=== PATIENT | male | born 1955 | race Caucasian/White ===

== ENCOUNTER → 2021-05-13 12:28 | Outpatient (BNVA) | payer OTHER, SELFPAY | PROVIDERS: Visit Provider Internal Medicine | DX: Z01.812 Encounter for preprocedural laboratory examination (principal); Z20.822 Contact with and (suspected) exposure to COVID-19 | CPT/HCPCS: 87635 ==

== ENCOUNTER 2021-05-16 06:29 | Day surgery (SDC) | payer OTHER, SELFPAY ==
[2021-05-12 10:41] VITALS: BMI 26.4
[2021-05-16 07:03] VITALS: BP 165/104; PULSE 75; RESP 16; TEMP 36.7; O2SAT 98
[2021-05-16] MEDS: sodium chloride 0.9% 1,000 ML 30 ML IV (07:20)
--- NOTE | 2021-05-16 07:22 | ANES.PREANE2 ---
Pre-Anesthetic Assessment Height/Weight: Height 1.8 m Weight 86.183 kg Temp Pulse Resp BP Pulse Ox 98.1 F 75 16 165/104 98 05/16/21 07:03 05/16/21 07:03 05/16/21 07:03 05/16/21 07:03 05/16/21 07:03 Operation Date: 05/16/21 08:15 Proposed Procedures p Colonoscopy g0105/z12.11/z86.010(Not Applicable) - Arslan English MD Familial anesthetic complications: None Was Beta Tammie taken within 24 hours: N/A Was Clonidine taken within 24 hours: N/A Last intake: Intake Last Liquid Date 05/15/21 Last Liquid Time 20:30 Last Solid Date 05/14/21 Last Solid Time 20:00 Social Tobacco and No alcohol Exam alert, oriented x 3, clear to auscultation bilaterally and regular rate & rhythm Airway Submandibular: within normal limits Cervical ROM: within normal limits Mallampati: Class II Dentition: chipped Pulmonary Chronic Obstructive Pulmonary Disease GI h/o colon polyp Anesthetic Plan ASA status: 2 Medications/Allergies Home Medications Medication Instructions Recorded Confirmed Last Taken Type ibuprofen 800 mg tablet 800 mg PO Q8H 05/04/21 05/16/21 05/13/21 History Allergies Allergy/AdvReac Type Severity Reaction Status Date / Time Penicillins Allergy Unknown Verified 05/16/21 07:01 Current Medications Generic Name Dose Route Start Last Admin Trade Name Freq PRN Reason Stop Dose Admin Sodium Chloride 1,000 mls @ 30 mls/hr 05/16/21 06:45 05/16/21 07:20 Sodium Chloride 0.9% IV 05/17/21 06:44 30 mls/hr .Q24H FENG Administration Data Anesthesia Cardiac Studies: No Data to Display
--- NOTE | 2021-05-16 07:48 | W.PM.OPSFHP ---
Same Day Surgery H&P Indication for Procedure/HPI DATE OF PROCEDURE: May 16, 2021 CHIEF COMPLAINT/INDICATIONFOR SURGICAL PROCEDURE: History of colon polyp PREOP DIAGNOSIS: History of colon history of colon polyp PLANNED PROCEDURE: Operation Date: 05/16/21 08:15 Proposed Procedures p Colonoscopy g0105/z12.11/z86.010(Not Applicable) - Arslan English MD Medications/Allergies* Home Medications Medication Instructions Recorded Confirmed Type ibuprofen 800 mg tablet 800 mg PO Q8H 05/04/21 05/16/21 History Allergies/Adverse Reactions Allergy/AdvReac Type Severity Reaction Status Date / Time Penicillins Allergy Unknown Verified 05/16/21 07:01 Current Medications: Generic Name Dose Route Start Last Admin Trade Name Freq PRN Reason Stop Dose Admin Sodium Chloride 1,000 mls @ 30 mls/hr 05/16/21 06:45 05/16/21 07:20 Sodium Chloride 0.9% IV 05/17/21 06:44 30 mls/hr .Q24H FENG Administration Pertinent Exam Findings alert, oriented x 3, clear to auscultation bilaterally, regular rate & rhythm, operative site marked and procedure specific exam findings Recommendations Surgery/Procedure today Coding Level of Care Code Acute Manager Business Continuity for Domitila Chapman
[2021-05-16 08:36] VITALS: BP 130/86; PULSE 67; RESP 16; TEMP 36.1; O2SAT 98
[2021-05-16 08:49] VITALS: BP 146/110; PULSE 97; RESP 18; O2SAT 99
--- NOTE | 2021-05-16 14:26 | ANE.PACU2 ---
Inpatient post-anesthesia follow up: Airway intact: Yes Vital signs: Temperature 97 F Pulse Rate 97 Respiratory Rate 18 Blood Pressure 146/110 Pulse Oximetry 99 Oxygen Delivery Me thod Room Air Oxygen Flow Rate 3 Fraction of Inspir ed Oxygen Hydration adequate: Yes Nausea and vomiting: No Pain level: 1 Mental status: Baseline
== END 2021-05-16 09:10 | disposition home or self-care (01) ==
PROVIDERS: Visit Provider Internal Medicine
PROC: 0DJD8ZZ Inspection of Lower Intestinal Tract, Via Natural or Artificial Opening Endoscopic (ICD-10-PCS; CPT 45378; principal; 2021-05-16 08:15)
DX: Z12.11 Encounter for screening for malignant neoplasm of colon (principal); Z86.010 Personal history of colon polyps; K57.30 Diverticulosis of large intestine without perforation or abscess without bleeding; D12.3 Benign neoplasm of transverse colon; D12.0 Benign neoplasm of cecum
CPT/HCPCS: 45385; 88305; J2704; J7030

== ENCOUNTER 2022-02-10 07:51 | Inpatient (IN) | payer OTHER, SELFPAY ==
[2022-02-10] VITALS (31 sets, daily range): BP systolic 132–211; BP diastolic 89–132; PULSE 54–87; RESP 10–21; TEMP 36.4; O2SAT 93–99; BMI 27.1; BMI 26.4
--- NOTE | 2022-02-10 08:10 | CT_ITS ---
WS: [id number] CT HEAD NONCONTRAST HISTORY: Symptoms of Acute Stroke TECHNIQUE: Contiguous axial imaging performed through the brain in 2.5 mm imaging. Bone and soft tiss ue windows. Sagittal and coronal reformats reviewed. All CT scans at [facility] use at least one of these dose optimization techniques: automated exposure control; mA and/or kV adjustment per pa tient size (includes targeted exams where dose is matched to clinical indication); or iterative recon struction. DLP: 1229.30 mGy-cm. COMPARISON: 08/02/2011 No acute intracranial hemorrhage, midline shift or mass effect. Mild atrophy with severe confluent decreased attenuation throughout the white matter from prior ische abby disease. Moderate progression since 2011. Focal area of new edema would be difficult to identify. There is no sulcal effacement. Tiny lacunar infarct RIGHT caudate. Ventricles: Normal size with no hydrocephalus. Dense LEFT MCA sign. Paranasal sinuses: Moderate mucoperiosteal thickening in the sinus cavities. Most significant involvi ng the ethmoid and LEFT maxillary. Mastoid air cells: Well pneumatized. Calvarium and scalp: Skull is intact with no soft tissue edema or swelling. CT/CT head thrombolytic 44017 IMPRESSION: 1. No acute intracranial hemorrhage. 2. Dense LEFT MCA sign. Suspect MCA thrombus. 3. Severe small vessel ischemic disease throughout the white matter. No large area of infarct. New areas of infarction may be difficult to identified based u brittany the adjacent confluent chronic white matter disease. Notified Robert Ferreira DO at 02/10/2022 8:21 AM.
--- NOTE | 2022-02-10 08:16 | W.ED.NEUROSD ---
HPI - Neuro Symptoms/Deficit General: Chief Complaint: Weakness Stated Complaint: Weakness Time Seen by Provider: 02/10/22 08:10 Source: patient and family Mode of arrival: wheelchair History of Present Illness: 66-year-old male presents emergency room with right-sided weakness. Initially the report I received was that it began this morning after he woke up however in talking to more carefully and asking family members were present his last known well was about 9-9 30 last night. Patient is not on any anticoagulants he denies any chest pain he denies history of previous strokes. Onset (ago): hour(s) Time: 07:57 Last Observed Normal: 21:30 Location: right face, right arm and right leg History of same: No Severity: severe Quality: weak and tingling Relieving factors: none Exacerbating factors: none Context: gradual onset and other (Awoke with symptoms.) Associated symptoms: Deny chest pain, cough, diaphoresis, fevers/chills, headache(s), anorexia, malaise, nausea, seizures, short of breath, syncope, tingling, vertigo, vomiting or weakness Treatments Prior to Arrival: none Review of Systems Const: Denies: fever(s), chills, fatigue, malaise or diaphoresis ENMT: Denies: throat pain, ear or mastoid pain, nasal discharge or nasal congestion Card: Denies: chest pain or syncope Resp: Denies: dyspnea, productive cough or non-productive cough GI: Denies: abdominal pain, nausea or vomiting : Denies: flank pain, difficulty urinating, dysuria, urinary frequency or urinary urgency Musc: Denies: neck pain or back pain Skin/Breast: Denies: rash or pruritus Neuro: Denies: headache(s) or vertigo NIH stroke score NIHSS: Level Of Consciousness - 1a: 0 Level Of Consciousness Questions - 1b: Both Correct Level Of Consciousness Commands - 1c: Both Correct Best Gaze - 2: Normal Visual Tello - 3: No Visual Loss Facial Palsy - 4: Partial Paralysis Motor Arm Right - 5: Effort Against [place] Motor Arm Left - 5: No Drift Motor Leg Right - 6: Effort Against [place] Motor Leg Left - 6: No Drift Limb Ataxia - 7: Present In Two Limbs Sensory - 8: Mild To Moderate Loss Best Language - 9: No Aphasia Dysarthia - 10: Mild/Moderate Dysarthia Extinction And Inattention - 11: 0 Score: Total Score: 10 Course Vital Signs: Vital signs: Vital Signs Temperature 97.5 F L 02/10/22 07:57 Pulse Rate 87 02/10/22 07:57 Respiratory Rate 14 02/10/22 07:57 Blood Pressure 173/108 02/10/22 07:57 Pulse Oximetry 96 02/10/22 07:57 Oxygen Delivery Me thod 02/10/22 07:57 MDM - Neuro Symptoms/Deficit Lab Data 02/10/22 08:15 02/10/22 08:15 Laboratory Results WBC 9.3 10^3/uL (4.0-10.0) 02/10/22 08:15 RBC 5.69 10^6/uL (4.1-5.3) H 02/10/22 08:15 Hgb 17.6 g/dL (11.7-16.6) H 02/10/22 08:15 Hct 52.5 % (42.0-52.0) H 02/10/22 08:15 MCV 92.3 fl (80-94) 02/10/22 08:15 MCH 30.9 pg (28.0-34.0) 02/10/22 08:15 MCHC 33.5 g/dL (30.0-36.0) 02/10/22 08:15 RDW 13.1 % (12.1-15.1) 02/10/22 08:15 Plt Count 223 10^3/cmm (130-400) 02/10/22 08:15 MPV 9.4 fL (7.4-10.4) 02/10/22 08:15 Neut % (Auto) 68.6 % 02/10/22 08:15 Lymph % (Auto) 24.1 % 02/10/22 08:15 [place] % (Auto) 5.3 % 02/10/22 08:15 Eos % (Auto) 1.2 % 02/10/22 08:15 Baso % (Auto) 0.5 % 02/10/22 08:15 Neut # (Auto) 6.40 10^3/uL (1.8-7.7) 02/10/22 08:15 Lymph # (Auto) 2.3 10^3/uL (0.8-4.8) 02/10/22 08:15 [place] # (Auto) 0.5 10^3/uL (0.2-0.9) 02/10/22 08:15 Eos # (Auto) 0.1 10^3/uL (0.0-0.8) 02/10/22 08:15 Baso # (Auto) 0.1 10^3/uL (0.0-0.1) 02/10/22 08:15 Nucleated RBC % (auto) 0 % 02/10/22 08:15 Nucleated RBCs # 0.0 /100WBC 02/10/22 08:15 POC Glucose 118 mg/dL (70-110) H 02/10/22 08:11 Discharge Plan Discharge Condition: Stable Prescriptions: No Action ibuprofen 800 mg tablet 800 mg PO Q8H Coding Level of Care Code ED Office Machine Inspector for Domitila Chapman
--- NOTE | 2022-02-10 08:17 | CT_ITS ---
WS: [id number] CT ANGIOGRAM CEREBRAL AND CAROTID ARTERIES HISTORY: Acute CVA NIH 10 TECHNIQUE: CT angiogram is performed of the carotid and cerebral arteries. During arterial injection imaging is obtained from the skull vertex to the aortic arch in 1.25 mm imaging. Coronal and sagittal reformats are submitted. Additional multi planar reformats of the carotid and cerebral arteries are submitted, MIP imaging also reviewed. NASCET criteria utilized. [facility] CT [facility] at least one of these dose optimization techniques: automated exposure control; mA and/or kV adjust ment per patient size (includes targeted exams where dose is matched to clinical indication); or iter ative reconstruction. CONTRAST: Omnipaque 350; 100 mL IV. DLP: 568.08 mGy.cm COMPARISON: Noncontrast CT head 02/10/2022 Carotid Angiogram: Right carotid: Common carotid artery: Arises normally from the innominate artery. No significant plaque or stenosis. Tortuous but patent. Internal carotid artery: No plaque or stenosis. External carotid artery: Patent. Left carotid: Common carotid artery: Arises normally from the aorta. No significant plaque or stenosis. Internal carotid artery: No plaque or stenosis. External carotid artery: Patent. Right vertebral artery: Small caliber but patent. Left vertebral artery: Unremarkable. Arises normally from the subclavian artery. Subclavian arteries: No stenosis or significant abnormality. Upper thorax: Normal. Thyroid gland: Normal. Osseous structures: Unremarkable. CEREBRAL ANGIOGRAM: Intracranial vertebral arteries: Small plaque distal RIGHT vertebral artery but it is patent. Basilar artery: No significant stenosis or occlusion. No aneurysm. Intracranial Internal carotid arteries: Mild to moderate scattered plaque in the cavernous and suprac linoid carotid arteries. No occlusion. Middle cerebral arteries: RIGHT middle cerebral artery is normal. No filling defect noted in the LEFT MCA territory in the site of increased density on the recent noncontrast CT. There are no filling de fects. Mild paucity of vessels in the distal LEFT MCA territory greatest along the M2 division. Anterior cerebral arteries and ACOM: Very mildly tortuous anterior cerebral arteries but no occlusion s. No aneurysm. Posterior cerebral arteries and PCOM's: Normal RIGHT posterior communicating artery. The LEFT is not visualized. Posterior cerebral arteries are normal. Dural venous sinuses are normally enhancing. Mastoid air cells: Normal. Paranasal sinuses: Mild mucoperiosteal thickening in the ethmoid and LEFT maxillary sinus. Calvarium: Normal. CT/CT angio [place]* [id number] IMPRESSION: 1. No thrombus or occlusion identified within the [place] of [place]. There is n o thrombus in the LEFT MCA. 2. Mild to moderate atherosclerotic disease in the distal carotid arteries wit h stenosis approaching 50%, bilateral. 3. No aneurysms.
--- NOTE | 2022-02-10 08:17 | ECG_ITS ---
[facility] Test Date: 2022-02-10 Pat Name: Prashanth Beatty Department: Room: [facility] Gender: Male Paper Cap Machine Operator: : [id number] Requested By: Robert Cruz Order Number: [id number] Kay MD: Ricco Yanez M.D. Measurements Intervals [place] Rate: 72 P: 30 MN: 178 QRS: 17 QRSD: 94 T: 37 QT: 370 QTc: 407 Interpretive Statements SINUS RHYTHM No previous ECG available for comparison Electronically Signed On 02-10-2022 11:09:35 DATABASE DEVELOPMENT PROJECT MANAGER by Ricco Yanez M.D. [id number]
[2022-02-10 08:21] LABS: Glucose Point of Care 118 mg/dL (70-110)
[2022-02-10 08:21] LABS: Basophils # 0.1 10^3/uL (0.0-0.1); Basophils % 0.5 %; Eosinophils # 0.1 10^3/uL (0.0-0.8); Eosinophils % 1.2 %; Hematocrit 52.5 % (42.0-52.0); Hemoglobin 17.6 g/dL (11.7-16.6); Lymphocytes # 2.3 10^3/uL (0.8-4.8); Lymphocytes % 24.1 %; Mean Corpuscular HGB Conc 33.5 g/dL (30.0-36.0); Mean Corpuscular Hemoglobin 30.9 pg (28.0-34.0); Mean Corpuscular Volume 92.3 fl (80-94); Mean Platelet Volume 9.4 fL (7.4-10.4); Monocytes # 0.5 10^3/uL (0.2-0.9); Monocytes % 5.3 %; Neutrophils % 68.6 %; Nucleated Red Blood Cells % 0 %; Platelet Count 223 10^3/cmm (130-400); Red Blood Count 5.69 10^6/uL (4.1-5.3); Red Cell Distribution Width 13.1 % (12.1-15.1); White Blood Count 9.3 10^3/uL (4.0-10.0)
[2022-02-10 08:38] LABS: INR 0.93 (0.8-1.2); Partial Thromboplastin Time 30.8 SECONDS (23.9-36.7)
--- NOTE | 2022-02-10 08:43 | PC.NURSE ---
PT PLACED ON CONTINUOUS NIBP, SPO2, AND CM
[2022-02-10 08:44] LABS: Alanine Aminotransferase 18 U/L (0-41); Albumin Level 4.3 g/dL (3.5-5.2); Alkaline Phosphatase 76 U/L (40-130); Aspartate Amino Transferase 21 U/L (0-40); Blood Urea Nitrogen 12 mg/dL (8-23); Calcium 10.1 mg/dL (8.5-10.5); Carbon Dioxide 24 mmol/L (22-29); Chloride 104 mmol/L (98-107); Globulin 3.4 g/dL (1.3-4.6); Glomerular Filtration Rate 97.3 mL/min (90-130); Glucose 120 mg/dL (65-115); Osmolality Calculated 289 mOsm/kg (285-295); Sodium 139 mmol/L (136-145); Total Bilirubin 0.4 mg/dL (0.15-1.2); Total Protein 7.7 g/dL (6.6-8.7)
--- NOTE | 2022-02-10 09:05 | PC.NURSE ---
DR. AYERS INSTRUCTED TO HOLD LABETOLOL UNLESS SBP IS GREATER THAN 180
--- NOTE | 2022-02-10 10:04 | ED_ITS ---
HPI - Weakness General: Chief complaint: Weakness Stated complaint: Weakness Time Seen by Provider: 02/10/22 08:10 Source: patient Mode of arrival: EMS Course Vital Signs: Vital signs: Vital Signs Temperature 97.5 F L 02/10/22 07:57 Pulse Rate 77 02/10/22 09:50 Respiratory Rate 19 H 02/10/22 09:24 Blood Pressure 176/114 02/10/22 09:24 Pulse Oximetry 97 02/10/22 09:24 Oxygen Delivery Me thod 02/10/22 07:57 MDM - Weakness Lab Data 02/10/22 08:15 02/10/22 08:[address] 02/10/22 08:10 IMPRESSION: 1. No acute intracranial hemorrhage. 2. Dense LEFT MCA sign. Suspect MCA thrombus. 3. Severe small vessel ischemic disease throughout the white matter. No large area of infarct. New areas of infarction may be difficult to identified based upon the adjacent confluent chronic white matter disease. Notified Robert Ferreira DO at 02/10/2022 8:21 AM. Head/Neck CTA 02/10/22 08:17 IMPRESSION: 1. No thrombus or occlusion identified within the [place]. There is no thrombus in the LEFT MCA. 2. Mild to moderate atherosclerotic disease in the distal carotid arteries with stenosis approaching 50%, bilateral. 3. No aneurysms. Laboratory Results WBC 9.3 10^3/uL (4.0-10.0) 02/10/22 08:15 RBC 5.69 10^6/uL (4.1-5.3) H 02/10/22 08:15 Hgb 17.6 g/dL (11.7-16.6) H 02/10/22 08:15 Hct 52.5 % (42.0-52.0) H 02/10/22 08:15 MCV 92.3 fl (80-94) 02/10/22 08:15 MCH 30.9 pg (28.0-34.0) 02/10/22 08:15 MCHC 33.5 g/dL (30.0-36.0) 02/10/22 08:15 RDW 13.1 % (12.1-15.1) 02/10/22 08:15 Plt Count 223 10^3/cmm (130-400) 02/10/22 08:15 MPV 9.4 fL (7.4-10.4) 02/10/22 08:15 Neut % (Auto) 68.6 % 02/10/22 08:15 Lymph % (Auto) 24.1 % 02/10/22 08:15 [place] % (Auto) 5.3 % 02/10/22 08:15 Eos % (Auto) 1.2 % 02/10/22 08:15 Baso % (Auto) 0.5 % 02/10/22 08:15 Neut # (Auto) 6.40 10^3/uL (1.8-7.7) 02/10/22 08:15 Lymph # (Auto) 2.3 10^3/uL (0.8-4.8) 02/10/22 08:15 [place] # (Auto) 0.5 10^3/uL (0.2-0.9) 02/10/22 08:15 Eos # (Auto) 0.1 10^3/uL (0.0-0.8) 02/10/22 08:15 Baso # (Auto) 0.1 10^3/uL (0.0-0.1) 02/10/22 08:15 Nucleated RBC % (auto) 0 % 02/10/22 08:15 Nucleated RBCs # 0.0 /100WBC 02/10/22 08:15 PT 12.80 SECONDS (12.1-14.9) 02/10/22 08:15 INR 0.93 (0.8-1.2) 02/10/22 08:15 APTT 30.8 SECONDS (23.9-36.7) 02/10/22 08:15 Sodium 139 mmol/L (136-145) 02/10/22 08:15 Potassium 4.0 mmol/L (3.5-5.1) 02/10/22 08:15 Chloride 104 mmol/L (98-107) 02/10/22 08:15 Carbon Dioxide 24 mmol/L (22-29) 02/10/22 08:15 Anion Gap 15.0 (5-19) 02/10/22 08:15 BUN 12 mg/dL (8-23) 02/10/22 08:15 Creatinine 0.8 mg/dL (0.7-1.2) 02/10/22 08:15 GFR Calculation 97.3 mL/min (90-130) 02/10/22 08:15 Glucose 120 mg/dL (65-115) H 02/10/22 08:15 POC Glucose 118 mg/dL (70-110) H 02/10/22 08:11 Calculated Osmolality 289 mOsm/kg (285-295) 02/10/22 08:15 Calcium 10.1 mg/dL (8.5-10.5) 02/10/22 08:15 Total Bilirubin 0.4 mg/dL (0.15-1.2) 02/10/22 08:15 AST 21 U/L (0-40) 02/10/22 08:15 ALT 18 U/L (0-41) 02/10/22 08:15 Alkaline Phosphatase 76 U/L (40-130) 02/10/22 08:15 Total Protein 7.7 g/dL (6.6-8.7) 02/10/22 08:15 Albumin 4.3 g/dL (3.5-5.2) 02/10/22 08:15 Globulin 3.4 g/dL (1.3-4.6) 02/10/22 08:15 Discharge Plan Discharge Patient Disposition: Admitted As Inpatient Admit Provider: Charlie Nichole Condition: Stable Coding Level of Care Code ED Teacher Public Health for Domitila Chapman
--- NOTE | 2022-02-10 10:07 | ED_ITS ---
HPI - Neuro Symptoms/Deficit General: Chief Complaint: Weakness Stated Complaint: Weakness Time Seen by Provider: 02/10/22 08:10 Source: patient Mode of arrival: EMS History of Present Illness: 66-year-old male presents emergency room via EMS with complaints of right-sided weakness. Initially he told us he had woken up at this point when pressed further with family present admitted his last known well was about 9-9 30 last night. He woke up with significant weakness on his right side slurring of his words facial weakness and right-sided numbness and tingling. Time: 07:51 Last Observed Normal: 21:30 Timing confirmed by: family member Location: speech, right face, right arm and right leg History of same: No Severity: moderate Quality: weak and tingling Relieving factors: none Exacerbating factors: none Context: gradual onset (Last known well was 9-9 30 last night) On Anticoagulants: No Associated symptoms: Reports headache(s), tingling and weakness; Deny chest pain, cough, diaphoresis, fevers/chills, anorexia, malaise, nausea, seizures, short of breath, syncope, vertigo or vomiting Treatments Prior to Arrival: none Review of Systems Const: Denies: fever(s), chills, fatigue, malaise or diaphoresis ENMT: Denies: throat pain, ear or mastoid pain, nasal discharge or nasal congestion Card: Denies: chest pain or syncope Resp: Denies: dyspnea, productive cough or non-productive cough GI: Denies: abdominal pain, nausea or vomiting : Denies: flank pain, dysuria, urinary frequency or urinary urgency Musc: Denies: neck pain or back pain Skin/Breast: Denies: rash or pruritus Neuro: Reports: headache(s), numbness in extremities, weakness in extremities, sensory changes, lack of coordination and Slurred speech present; Denies: vertigo [facility] ED PFSH: Medical History (Updated 02/10/22 @ 10:30 by Robert Ferreira DO) History of colon polyps Hypertension NIH stroke score NIHSS: Level Of Consciousness - 1a: 0 Level Of Consciousness Questions - 1b: Both Correct Level Of Consciousness Commands - 1c: Both Correct Best Gaze - 2: Normal Visual Tello - 3: No Visual Loss Facial Palsy - 4: Partial Paralysis Motor Arm Right - 5: Effort Against [place] Motor Arm Left - 5: No Drift Motor Leg Right - 6: Effort Against [place] Motor Leg Left - 6: No Drift Limb Ataxia - 7: Present In Two Limbs Sensory - 8: Mild To Moderate Loss Best Language - 9: No Aphasia Dysarthia - 10: Mild/Mo derate Dysarthia Extinction And Inattention - 11: 0 Score: Total Score: 10 Physical Exam Const: COMMON NORMALS: no acute distress GENERAL APPEARANCE: cooperative and comfortable ORIENTATION/CONSCIOUSNESS: Yes awake, Yes oriented to person, Yes oriented to place and Yes oriented to time HENMT: COMMON NORMALS: normocephalic, atraumatic, hearing grossly normal bilaterally, external ears normal, EAC's normal, TM's normal bilaterally, Normal nasal mucous membranes and turbinates present, moist oral mucous membranes and oropharynx normal HEAD & SCALP: normocephalic and atraumatic NOSE: Normal nasal mucous membranes and turbinates present EXTERNAL EAR: Yes external ears normal EXTERNAL AUDITORY CANAL: EAC's normal TYMPANIC MEMBRANE: TM's normal bilaterally Eye: COMMON NORMALS: Equal, round and reactive pupils present, EOMs intact bilaterally, conjunctivae normal and no scleral icterus CONJUNCTIVA: Yes conjunctivae normal PUPIL: Yes Equal, round and reactive pupils present Neck/C-Spine: COMMON NORMALS: full ROM, no lymphadenopathy, supple and no JVD Lymph: LYMPHATIC: no lymphadenopathy noted and no lymphedema noted Resp: COMMON NORMALS: normal respiratory effort, No retractions, No use of accessory muscles and clear to auscultation bilaterally AUSCULTATION: clear to auscultation bilaterally Cardio: COMMON NORMALS: no JVD, regular rate, regular rhythm and No murmurs present (Cardio) RATE: regular rate RHYTHM: regular rhythm GI: COMMON NORMALS: Soft to palpation and No hepatosplenomegaly present AUSCULTATION: Yes normoactive bowel sounds PALPATION: Yes Soft to palpation, No Tenderness to palpation present (GI), No Guarding due to palpation present (GI) and Yes No hepatosplenomegaly present Extremity: COMMON NORMALS: normal to inspection, capillary refill normal, no clubbing, cyanosis or edema, no calf tenderness and no pedal edema Neuro: SENSORIUM/ORIENTATION: Yes oriented to person, Yes oriented to place and Yes oriented to time OTHER: See NIH score Skin: COMMON NORMALS: no rashes or lesions noted GENERAL SKIN EXAM: no rashes or lesions noted Course Vital Signs: Vital signs: Vital Signs Temperature 97.5 F L 02/10/22 07:57 Pulse Rate 77 02/10/22 09:50 Respiratory Rate 19 H 02/10/22 09:24 Blood Pressure 176/114 02/10/22 09:24 Pulse Oximetry 97 02/10/22 09:24 Oxygen Delivery Me thod 02/10/22 07:57 MDM - Neuro Symptoms/Deficit Medical Decision Making Initially we thought he was within the window however in talking to his family confirmed that he was a wake-up stroke and while outside of the window for tPA. CTA did not show any embolism amenable to embolectomy. Will admit allow permissive hypertension discussed with hospitalist orders written Medical Records I reviewed the patient's medical records. Lab Data I reviewed the patient's lab results. 02/10/22 08:15 02/10/22 08:[address] 02/10/22 08:10 IMPRESSION: 1. No acute intracranial hemorrhage. 2. Dense LEFT MCA sign. Suspect MCA thrombus. 3. Severe small vessel ischemic disease throughout the white matter. No large area of infarct. New areas of infarction may be difficult to identified based upon the adjacent confluent chronic white matter disease. Notified Robert Ferreira DO at 02/10/2022 8:21 AM. Head/Neck CTA 02/10/22 08:17 IMPRESSION: 1. No thrombus or occlusion identified within the [place] of [place]. There is no thrombus in the LEFT MCA. 2. Mild to moderate atherosclerotic disease in the distal carotid arteries with stenosis approaching 50%, bilateral. 3. No aneurysms. Laboratory Results WBC 9.3 10^3/uL (4.0-10.0) 02/10/22 08:15 RBC 5.69 10^6/uL (4.1-5.3) H 02/10/22 08:15 Hgb 17.6 g/dL (11.7-16.6) H 02/10/22 08:15 Hct 52.5 % (42.0-52.0) H 02/10/22 08:15 MCV 92.3 fl (80-94) 02/10/22 08:15 MCH 30.9 pg (28.0-34.0) 02/10/22 08:15 MCHC 33.5 g/dL (30.0-36.0) 02/10/22 08:15 RDW 13.1 % (12.1-15.1) 02/10/22 08:15 Plt Count 223 10^3/cmm (130-400) 02/10/22 08:15 MPV 9.4 fL (7.4-10.4) 02/10/22 08:15 Neut % (Auto) 68.6 % 02/10/22 08:15 Lymph % (Auto) 24.1 % 02/10/22 08:15 [place] % (Auto) 5.3 % 02/10/22 08:15 Eos % (Auto) 1.2 % 02/10/22 08:15 Baso % (Auto) 0.5 % 02/10/22 08:15 Neut # (Auto) 6.40 10^3/uL (1.8-7.7) 02/10/22 08:15 Lymph # (Auto) 2.3 10^3/uL (0.8-4.8) 02/10/22 08:15 [place] # (Auto) 0.5 10^3/uL (0.2-0.9) 02/10/22 08:15 Eos # (Auto) 0.1 10^3/uL (0.0-0.8) 02/10/22 08:15 Baso # (Auto) 0.1 10^3/uL (0.0-0.1) 02/10/22 08:15 Nucleated RBC % (auto) 0 % 02/10/22 08:15 Nucleated RBCs # 0.0 /100WBC 02/10/22 08:15 PT 12.80 SECONDS (12.1-14.9) 02/10/22 08:15 INR 0.93 (0.8-1.2) 02/10/22 08:15 APTT 30.8 SECONDS (23.9-36.7) 02/10/22 08:15 Sodium 139 mmol/L (136-145) 02/10/22 08:15 Potassium 4.0 mmol/L (3.5-5.1) 02/10/22 08:15 Chloride 104 mmol/L (98-107) 02/10/22 08:15 Carbon Dioxide 24 mmol/L (22-29) 02/10/22 08:15 Anion Gap 15.0 (5-19) 02/10/22 08:15 BUN 12 mg/dL (8-23) 02/10/22 08:15 Creatinine 0.8 mg/dL (0.7-1.2) 02/10/22 08:15 GFR Calculation 97.3 mL/min (90-130) 02/10/22 08:15 Glucose 120 mg/dL (65-115) H 02/10/22 08:15 POC Glucose 118 mg/dL (70-110) H 02/10/22 08:11 Calculated Osmolality 289 mOsm/kg (285-295) 02/10/22 08:15 Calcium 10.1 mg/dL (8.5-10.5) 02/10/22 08:15 Total Bilirubin 0.4 mg/dL (0.15-1.2) 02/10/22 08:15 AST 21 U/L (0-40) 02/10/22 08:15 ALT 18 U/L (0-41) 02/10/22 08:15 Alkaline Phosphatase 76 U/L (40-130) 02/10/22 08:15 Total Protein 7.7 g/dL (6.6-8.7) 02/10/22 08:15 Albumin 4.3 g/dL (3.5-5.2) 02/10/22 08:15 Globulin 3.4 g/dL (1.3-4.6) 02/10/22 08:15 Discharge Plan Discharge Patient Disposition: Admitted As Inpatient Admit Provider: Charlie Nichole Clinical Impression: Acute cerebrovascular accident (CVA), Hypertension Condition: Stable Coding Level of Care Code ED Single Spindle Screw Machine Operator for Chg Fwd Exam Comprehensive
--- NOTE | 2022-02-10 11:14 | MR_ITS ---
WS: [id number] MRI HEAD WITHOUT CONTRAST TECHNIQUE: Sagittal T1, T2 axial, T2 axial FLAIR, axial and coronal T1 images, axial susceptibility w eighted imaging, axial diffusion weighted images, and coronal T2 images were obtained. CLINICAL INFORMATION: cva COMPARISON: CT February 10, 2022 FINDINGS: Small amount of restricted diffusion within the posterior limb LEFT internal capsule consistent with acute ischemia measuring approximately 1.4 x 0.7 CM. No other foci of restricted diffusion. Advanced small vessel changes. Mild parenchymal volume loss. Small vessel changes in the marcello. Normal posterior fossa. Normal vascular flow voids at the skull base. No extra-axial fluid collections. No evidence of mass or mass effect. Mild mucosal thickening in the paranasal sinuses. Mastoid air cells are well aerated. Normal optic chiasm and pituitary infundibulum. Temporal lobes and hippocampal form ations are normal in appearance. No other suspicious findings. MR/MR head wo con* [id number] IMPRESSION: 1. 1.5 x 0.7 cm focus of acute ischemia in the posterior limb LEFT internal ca psule. Tiny amount of surrounding edema. No mass effect. 2. Advanced small vessel changes with mild parenchymal volume loss. 3. No hemosiderin on susceptibly weighted images. 4. Mild mucosal thickening in the paranasal sinuses. 5. No other suspicious findings Notified Portillo Garcia MD at 02/10/2022 1:09 PM.
--- NOTE | 2022-02-10 11:18 | USCV_ITS ---
Prashanth Beatty Age: 66 Gender: M : 1955 Exam Date: 02/10/2022 12:12 Ordering Phys: Portillo Garcia MD Technologist: Izzy Mckenzie [place] [facility] [place]: CVA BP: 194 / 115 HR: 66 Rhythm: Sinus Technical Quality: Adequate MEASUREMENTS (Male / Female) Normal Values 2D ECHO LV Diastolic Diameter PLAX 4.2 cm 4.2 - 5.9 / 3.9 - 5.3 cm LV Systolic Diameter PLAX 2.7 cm LV Chamber Size 3.1 cm IVS Diastolic Thickness 1.2 cm 0.6 - 1.0 / 0.6 - 0.9 cm IVS Systolic Thickness 1.5 cm LVPW Diastolic Thickness 1.2 cm 0.6 - 1.0 / 0.6 - 0.9 cm LVPW Systolic Thickness 1.4 cm RV Chamber Size 2.3 cm LVOT Diameter 2.0 cm LV Ejection Fraction 2D Teich 65.1 % LV Ejection Fraction MOD 2C 69.1 % LV Ejection Fraction 2C AL 69.9 % LA Diameter 3.3 cm LA Width 3.1 cm LA Height 3.2 cm RA Width 3.0 cm RA Height 3.2 cm Aorta at Sinotubular Diameter 2.8 cm M-MODE Aortic Annulus Diameter 3.8 cm LA Ao Ratio MM 1.0 MV E Point Septal Separation 0.7 cm DOPPLER AV Peak Velocity 95.0 cm/s LVOT Peak Velocity 88.0 cm/s AV Area Cont Eq vti 3.0 cm squared AV Area Cont Eq pk 3.0 cm squared MV Area PHT 1.9 cm squared Mitral E to A Ratio 0.9 MV E' Velocity 40.5 cm/s Mitral E to MV E' Ratio 10.2 Mitral E to LV E' Lateral Ratio 8.9 Mitral E to LV E' Septal Ratio 11.8 TR Peak Velocity 110.3 cm/s TR Peak Gradient 4.9 mmHg TR Mean Velocity 77.3 cm/s TR Mean Gradient 2.6 mmHg TR Velocity Time Integral 23.8 cm TV Peak E Velocity 60.0 cm/s Right Atrial Pressure 3.0 mmHg Pulmonary Artery Systolic Pressu 7.9 mmHg RV Acceleration Time 0.2 s RV Ejection Time 0.3 s RV AcT/ET 0.5 FINDINGS Left Ventricle Normal left ventricular size and systolic function, EF 60 %. No regional wall motion abnormalities. Grade I/IV diastolic dysfunction (abnormal relaxation filling pattern), normal to mildly elevated filling pressures. Mild left ventricular hypertrophy. Right Ventricle The right ventricle is normal in size and function. Right Atrium The right atrium is normal in size. Left Atrium The left atrium is normal in size. Mitral Valve No gross abnormalities noted Aortic Valve Thickened aortic valve. Tricuspid Valve No gross abnormalities noted Pulmonic Valve Pulmonic valve not well visualized. Pericardium Normal pericardium without effusion. Aorta Normal ascending aorta dimension. IVC The inferior vena cava appears normal. CONCLUSIONS Normal left ventricular size and systolic function, EF 60 %. No regional wall motion abnormalities. Grade I/IV diastolic dysfunction (abnormal relaxation filling pattern), normal to mildly elevated filling pressures. Mild left ventricular hypertrophy. Thickened aortic valve. Normal cardiac chamber sizes. No significant stenotic or regurgitant lesions There is no pericardial effusion. There are no intracardiac masses. No similar previous studies are available for comparison Dr Gucci Lee MD FACC (Electronically Signed) Final Date: 10 February 2022 13:40 S
--- NOTE | 2022-02-10 11:25 | P.HP_ITS ---
Providers/Chief Complaint Admitting Physician: Charlie Nichole MD Chief Complaint: Weakness History of Present Illness Prashanth Beatty is a 66 year old male with a past medical history of valvular disease, no intervention required, this was over 20 years ago and he does not remember the details, no history of heart disease, no history of COPD, does smoke cigars, no history of diabetes, who presents [facility] due to dysphagia, slurring of his words right facial droop, and right upper and lower extremity weakness. During my examination currently patient is in the ICU, family members at bedside, [id number] at bedside. He tells me that he yesterday there was nothing on the ordinary, he was watching his football game, and just before bed he felt unusual but nothing specific he could not put his finger on it and he went to bed at roughly 10 PM. He tells me that he woke up this morning had roughly 8 or so, and he had right upper right lower extremity weakness, trouble coordinating, slurring of his words, he could not get up out of bed due to weakness, unsteadiness on his feet. Here in the emergency room, patient arrived right-sided weakness, stroke code was called, Lashawn was not contacted, he did not qualify for tPA as he was out of the tPA window, his CT of his head showed dense left MCA sign, suspect MCA thrombus, however his CTA shows no thrombus or occlusion identified in [place] or in the left MCA. Currently he is alert oriented x3, right facial droop slurring of his words, no receptive aphasia can follow commands, right upper extremity strength roughly 3 out of 5 right lower extremity strength roughly 3 out of 5, no visual field deficit my NIH stroke calculation roughly at 8, awaiting call back from lashawn Review of Systems Const: Denies: fever(s) Eyes: Denies: change in vision ENMT: Denies: nasal congestion Resp: Denies: dyspnea GI: Denies: abdominal pain, nausea or vomiting : Denies: dysuria Neuro: Denies: headache(s) or vertigo Medications/Allergies Home Medications Medication Instructions Recorded Confirmed Last Taken Type ibuprofen 800 mg tablet 800 mg PO Q8H PRN Pain 05/04/21 02/10/22 05/13/21 History Allergies Allergy/AdvReac Type Severity Reaction Status Date / Time Penicillins Allergy Unknown Verified 02/10/22 08:31 PFSH Acute PFSH: Medical History History of colon polyps Hypertension Social History (Updated 02/10/22 @ 11:36 by Portillo Garcia MD) Smoking and tobacco status: current every day smoker Alcohol intake: current Substance/Drug Use: never Vitals/I&O/Wt Last Vital Signs Temp 97.5 F L 02/10/22 07:57 Pulse 68 02/10/22 10:29 Resp 19 H 02/10/22 09:24 BP 176/114 02/10/22 09:24 Pulse Ox 93 02/10/22 10:29 O2 Del Method 02/10/22 10:29 Weight last 48 hrs Weight 85.956 kg Weight 85.956 kg Weight 88.451 kg Physical Exam Const: COMMON NORMALS: no acute distress and patient oriented x3 HENMT: COMMON NORMALS: normocephalic HEAD & SCALP: normocephalic Eye: COMMON NORMALS: Equal, round and reactive pupils present and EOMs intact bilaterally Neck/C-Spine: COMMON NORMALS: no JVD Resp: COMMON NORMALS: normal respiratory effort, No retractions, No use of accessory muscles and clear to auscultation bilaterally AUSCULTATION: clear to auscultation bilaterally Cardio: COMMON NORMALS: regular rate, regular rhythm, S1 normal heart sound present and S2 normal heart sound present RATE: regular rate RHYTHM: regular rhythm HEART SOUNDS: S1 normal heart sound present and S2 normal heart sound present GI: COMMON NORMALS: Normal to inspection, nondistended, normoactive bowel sounds present, Soft to palpation, non-tender, No hepatosplenomegaly present, no masses and no bruits PALPATION: Yes Soft to palpation Extremity: COMMON NORMALS: no calf tenderness and no pedal edema Neuro: COMMON NORMALS: patient oriented x3 OTHER: Right facial droop Slurring words, mild dysarthria Right upper extremity strength 3 out of 5, no gaze palsy, alert keenly responsive,, right hand drifts but does not hit bed Right lower extremity strength 3 out of 5 right lower extremity drifts but does not hit bed Visual lawrence, intact [id number] abnormal on right NIH stroke scale 8 Psych: COMMON NORMALS: mental status grossly normal Data 02/10/22 08:15 02/10/22 08:15 A&P Assessment and plan (1) Acute cerebrovascular accident (CVA): Plan Acute CVA -[facility] -1.? No acute intracranial hemorrhage. 2.? Dense LEFT MCA sign. Suspect MCA thrombus. 3.? Severe small vessel ischemic disease throughout the white matter. No large area of infarct. New areas of infarction may be difficult to identified based upon the adjacent confluent chronic white matter disease. CTA head and neck -1.? No thrombus or occlusion identified within the [place]. There is no thrombus in the LEFT MCA. 2.? Mild to moderate atherosclerotic disease in the distal carotid arteries with stenosis approaching 50%, bilateral. 3.? No aneurysms. -No atrial fibrillation on presentation -Is hypertensive -Allow for permissive hypertension, treat systolic if is greater than 220 or diastolic in the 120 -Does have erythrocytosis, likely secondary to cigarette use, but will do fu rther work-up -PT OT -Speech therapy -Bedside swallow eval -IV fluids -Aspirin, statin, Plavix -Neurochecks, aspiration precautions, night stroke scale -Full code -Lovenox for DVT prophylaxis Attestations Medical Necessity Statement*: Patient requires hospitalization for acute CVA, inpatient , greater than 2 midnights Coding Level of Care Code Acute Survey Associate for Domitila Chapman Diagnoses Acute cerebrovascular accident (CVA) I63.9
[2022-02-10] MEDS: aspirin 81 mg Chew Tablet 324 MG PO (11:47)
[2022-02-10] MEDS: enoxaparin 40 mg/0.4 mL Syringe SUBCUT (11:47)
[2022-02-10] MEDS: pantoprazole 40 mg SDV IVP (11:48)
[2022-02-10] MEDS: sodium chloride 0.9% 1,000 ML 75 ML IV (11:48)
[2022-02-10 12:12] LABS: Estmated Average Glucose 105; Hemoglobin A1C 5.3 % (4.0-6.0)
[2022-02-10 12:16] LABS: Cholesterol 228 mg/dL (0-200); HDL Cholesterol 53 mg/dL (60-100); LDL Cholesterol Calculated 149 mg/dL (50-129); LDL HDL Ratio 2.81 RATIO (0.00-3.22); Triglycerides 130 mg/dL (0-150)
[2022-02-10 12:58] LABS: Erythrocyte Sedimentation Rate 24 mm/hr (0-10)
[2022-02-10 14:09] LABS: INR 0.96 (0.8-1.2)
[2022-02-10 18:02] LABS: Add Urine Microscopic? NO; Charge for UA Resulting for Rev
[2022-02-10 18:04] LABS: Bilirubin Urine Neg (Negative); Blood Urine Neg (Negative); Glucose Urine UA Norm (Normal); Ketones Urine 1+ (Negative); Leukocyte Esterase Urine Negative (Negative); Nitrate Urine Negative (Negative); Protein Urine Neg (Negative); Specific Gravity, Urine 1.005 (1.005-1.030); Urine Appearance Clear (CLEAR); Urine Color Yellow (Yellow); Urobilinogen Urine Norm (Negative); pH Urine 7 (5-7)
[2022-02-10 18:17] LABS: Amphetamines Screen Urine Negative (Negative); Barbiturates Screen Urine Negative (Negative); Benzodiazepines Screen Urine Negative (Negative); Cocaine Screen Urine Negative (Negative); Opiate Screen Urine Negative (Negative); PCP Screen Urine Negative (Negative); THC Screen Urine Negative (Negative)
[2022-02-10] MEDS: atorvastatin 40 mg Tablet PO (20:10)
[2022-02-11] VITALS (22 sets, daily range): BP systolic 130–176; BP diastolic 82–105; PULSE 55–70; RESP 13–19; TEMP 36.6–36.7; O2SAT 92–96
[2022-02-11] MEDS: sodium chloride 0.9% 1,000 ML 75 ML IV (03:26)
[2022-02-11 05:20] LABS: Basophils % 0.6 %; Eosinophils # 0.2 10^3/uL (0.0-0.8); Eosinophils % 2.2 %; Hematocrit 46.7 % (42.0-52.0); Lymphocytes # 2.3 10^3/uL (0.8-4.8); Lymphocytes % 32.8 %; Mean Corpuscular HGB Conc 34.3 g/dL (30.0-36.0); Mean Corpuscular Hemoglobin 31.6 pg (28.0-34.0); Mean Corpuscular Volume 92.1 fl (80-94); Mean Platelet Volume 9.8 fL (7.4-10.4); Monocytes # 0.4 10^3/uL (0.2-0.9); Monocytes % 5.1 %; Neutrophils # 4.07 10^3/uL (1.8-7.7); Neutrophils % 59.2 %; Nucleated Red Blood Cells % 0 %; Platelet Count 200 10^3/cmm (130-400); Red Blood Count 5.07 10^6/uL (4.1-5.3); Red Cell Distribution Width 13.1 % (12.1-15.1); White Blood Count 6.9 10^3/uL (4.0-10.0)
[2022-02-11 06:05] LABS: Alanine Aminotransferase 15 U/L (0-41); Albumin Level 3.7 g/dL (3.5-5.2); Alkaline Phosphatase 63 U/L (40-130); Anion Gap 11.6 (5-19); Aspartate Amino Transferase 16 U/L (0-40); Blood Urea Nitrogen 10 mg/dL (8-23); Calcium 9.1 mg/dL (8.5-10.5); Carbon Dioxide 23 mmol/L (22-29); Chloride 100 mmol/L (98-107); Globulin 2.9 g/dL (1.3-4.6); Glomerular Filtration Rate 113.5 mL/min (90-130); Glucose 92 mg/dL (65-115); Magnesium 1.9 mg/dL (1.7-2.3); Osmolality Calculated 271 mOsm/kg (285-295); Phosphorus 2.5 mg/dL (2.5-4.5); Potassium 3.6 mmol/L (3.5-5.1); Sodium 131 mmol/L (136-145); Total Bilirubin 0.5 mg/dL (0.15-1.2); Total Protein 6.6 g/dL (6.6-8.7)
[2022-02-11] MEDS: aspirin 81 mg EC Tablet PO (08:43)
[2022-02-11] MEDS: clopidogrel 75 mg Tablet PO (08:43)
[2022-02-11] MEDS: enoxaparin 40 mg/0.4 mL Syringe SUBCUT (11:14)
[2022-02-11] MEDS: pantoprazole 40 mg SDV IVP (11:14)
--- NOTE | 2022-02-11 11:33 | P.PN_ITS ---
Subjective Subjective: walking in the ICU hallway with assistance of walker. Still with dysarthria but patient thinks speech is getting better, as is weakness. Medications: Reviewed: Yes Vitals/I&O/Wt Last Vital Signs Temp 97.5 F L 02/10/22 20:00 Pulse 70 02/11/22 10:02 Resp 17 02/11/22 08:00 BP 141/96 02/11/22 08:00 Pulse Ox 94 02/11/22 10:02 O2 Del Method 02/11/22 10:02 02/10/22 02/11/22 02/11/22 22:59 06:59 14:59 Intake Total 450 / 550 1000 / 1550 240 / 240 Output Total 350 / 350 500 / 850 Balance 100 / 200 500 / 700 240 / 240 Weight last 48 hrs Weight 85.956 kg Weight 85.956 kg Weight 88.451 kg Physical Exam Narrative: General: No acute distress, AO x3 HEENT: PERRLA, pupils bilaterally equal and reactive, pallors not present Chest: Normal vesicular breath sounds, no added sounds, equal good air entry bilaterally CVS: S1-S2 regular, no murmurs, no tachycardia, no gallops, no rubs Abdomen: Soft, nontender, no organomegaly, bowel sounds present Neuro: dysarthria+, RUE and RLE 3/5, left upper and lower extremities 5/5 Data 02/11/22 04:10 02/11/22 04:10 Other Labs: MR head 02/10/22 MR/MR head wo con* [id number] IMPRESSION: ? 1.? 1.5 x 0.7 cm focus of acute ischemia in the posterior limb LEFT internal capsule. Tiny amount of surrounding edema. No mass effect. 2.? Advanced small vessel changes with mild parenchymal volume loss. 3.? No hemosiderin on susceptibly weighted images. 4.? Mild mucosal thickening in the paranasal sinuses. 5.? No other suspicious findings ? A&P Assessment and plan (1) Acute cerebrovascular accident (CVA): patient presenting with acute ischemia of the posterior limb of the left internal capsule. Currently symptoms include right-sided upper and lower extremity weakness, dysarthria, facial asymmetry. Currently on aspirin 81 mg p.o. daily, Plavix 75 mg p.o. daily, atorvastatin 40 mg p.o. daily. Lipid panel with deranged LDL at 149. Other potential risk factors include cigar smoking for several years. Echocardiogram shows normal LVEF of 60%, no regional wall motion abnormalities, grade 1 of 4 diastolic dysfunction. Noted additionally mild left ventricular hypertrophy and a thickened aortic valve. Mild to moderate carotid disease approaching 50% stenosis bilaterally on CTA of the neck. 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 He will likely need outpatient follow-up with cardiology. No events noted on telemetry while patient here in the ICU, will arrange for 2- week event monitor to evaluate for any underlying atrial fibrillation which may have contributed to the stroke. No past history of hypertension, in the hospital maximum systolic blood pressure recorded at 179 mmHg. Most blood pressure ranges between 1 40-1 60 systolic. This may be related to permissive hypertension after her stroke, have not started antihyper hypertensives currently. -PT OT Speech therapy evaluation appreciated. -Dispo: Plan for discharge to acute rehab for continued physical therapy and recovery. DVT prophylaxis: Lovenox 40 mg subcutaneous daily Full code Stable to transfer from ICU to [facility] with telemetry. Attestations Medical Necessity Statement*: Admitted for patient admitted for acute stroke, started on appropriate interventions, awaiting placement at acute rehab for continued physical therapy from which he is likely to benefit. Coding Level of Care Code Acute Bilingual Sales Consultant for Domitila Chapman Diagnoses Acute cerebrovascular accident (CVA) I63.9
[2022-02-11] MEDS: atorvastatin 40 mg Tablet PO (21:44)
[2022-02-11] MEDS: acetaminophen 325 mg Tablet 650 MG PO (21:48)
[2022-02-12] VITALS (9 sets, daily range): BP systolic 144–163; BP diastolic 86–100; PULSE 56–81; RESP 18–19; TEMP 36.5–36.6; O2SAT 94–97
[2022-02-12] MEDS: aspirin 81 mg EC Tablet PO (07:51)
[2022-02-12] MEDS: clopidogrel 75 mg Tablet PO (07:51)
[2022-02-12] MEDS: pantoprazole DR 40 mg Tablet PO (07:51)
[2022-02-12] MEDS: acetaminophen 325 mg Tablet 650 MG PO ×3 (07:51→20:12)
[2022-02-12] MEDS: enoxaparin 40 mg/0.4 mL Syringe SUBCUT (10:45)
[2022-02-12] MEDS: sennosides-docusate Tablet 2 TAB PO ×2 (12:41→20:12)
--- NOTE | 2022-02-12 15:22 | PC.NURSE ---
PER DR. MEMBRENO, TAKE IV'S OUT AND LEAVE OUT.
--- NOTE | 2022-02-12 16:38 | PM.PN ---
Subjective Subjective: No new complaints today. Working with physical therapy. Dysarthria appears to be a little bit improved today. Diet has been advanced. Medications: Reviewed: Yes Vitals/I&O/Wt Last Vital Signs Temp 97.8 F 02/12/22 15:46 Pulse 80 02/12/22 15:46 Resp 18 02/12/22 15:46 BP 154/93 02/12/22 15:46 Pulse Ox 97 02/12/22 15:46 O2 Del Method 02/12/22 15:46 02/12/22 02/12/22 02/12/22 06:59 14:59 22:59 Intake Total 240 / 1467.5 840 / 840 Balance 240 / 1467.5 840 / 840 Physical Exam Narrative: General: No acute distress, AO x3 HEENT: PERRLA, pupils bilaterally equal and reactive, pallors not present Chest: Normal vesicular breath sounds, no added sounds, equal good air entry bilaterally CVS: S1-S2 regular, no murmurs, no tachycardia, no gallops, no rubs Abdomen: Soft, nontender, no organomegaly, bowel sounds present Neuro: dysarthria+, RUE and RLE 3/5, left upper and lower extremities 5/5 Data 02/11/22 04:10 02/11/22 04:10 A&P Assessment and plan (1) Acute cerebrovascular accident (CVA): patient presenting with acute ischemia of the posterior limb of the left internal capsule. Currently symptoms include right-sided upper and lower extremity weakness, dysarthria, facial asymmetry. Dysarthria appears to be slightly better today. Currently on aspirin 81 mg p.o. daily, Plavix 75 mg p.o. daily, atorvastatin 40 mg p.o. daily. Lipid panel with deranged LDL at 149. Other potential risk factors include cigar smoking for several years. Echocardiogram shows normal LVEF of 60%, no regional wall motion abnormalities, grade 1 of 4 diastolic dysfunction. Noted additionally mild left ventricular hypertrophy and a thickened aortic valve. Mild to moderate carotid disease approaching 50% stenosis bilaterally on CTA of the neck. 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 He will likely need outpatient follow-up with cardiology. No events noted on telemetry while patient here in the ICU, will arrange for 2-week event monitor to evaluate for any underlying atrial fibrillation which may have contributed to the stroke. No past history of hypertension, in the hospital maximum systolic blood pressure recorded at 179 mmHg. Most blood pressure ranges between 1 40-1 60 systolic. This may be related to permissive hypertension after her stroke, have not started antihypertensives currently. -PT OT Speech therapy evaluation appreciated. -Dispo: Plan for discharge to acute rehab for continued physical therapy and recovery. DVT prophylaxis: Lovenox 40 mg subcutaneous daily Full code Attestations Medical Necessity Statement*: awaiting appropriate disposition planning Coding Level of Care Code Acute Credit Reporting Clerk for Domitila Chapman Diagnoses Acute cerebrovascular accident (CVA) I63.9
[2022-02-12] MEDS: atorvastatin 40 mg Tablet PO (20:12)
[2022-02-13] VITALS: BP 154/100; PULSE 65; RESP 18; TEMP 36.6; O2SAT 96
[2022-02-13 04:00] VITALS: BP 156/89; PULSE 63; RESP 18; TEMP 36.6; O2SAT 96
[2022-02-13 06:00] VITALS: PULSE 55
[2022-02-13] MEDS: sennosides-docusate Tablet 2 TAB PO (07:39)
[2022-02-13] MEDS: acetaminophen 325 mg Tablet 650 MG PO (07:40)
[2022-02-13] MEDS: clopidogrel 75 mg Tablet PO (07:40)
[2022-02-13] MEDS: pantoprazole DR 40 mg Tablet PO (07:40)
[2022-02-13] MEDS: aspirin 81 mg EC Tablet PO (07:40)
[2022-02-13 08:00] VITALS: BP 144/90; PULSE 79; RESP 15; TEMP 36.5; O2SAT 95
[2022-02-13] MEDS: enoxaparin 40 mg/0.4 mL Syringe SUBCUT (11:27)
[2022-02-13 11:48] VITALS: BP 149/90; PULSE 62; RESP 16; TEMP 36.8; O2SAT 96
--- NOTE | 2022-02-13 12:51 | P.DS_ITS ---
Discharge Providers Date of Admission: 02/10/22 09:15 Date of Discharge: February 13, 2022 Attending Provider at Admission: Charlie Nichole MD Attending Provider at Discharge: Ramona Kapadia MD Diagnoses at Discharge Discharge Diagnosis (1) Acute cerebrovascular accident (CVA): Status: Acute Reason for Visit Reason for Visit: Weakness Hospital Course Hospital Course Prashanth Beatty is a 66 year old male, chronic smoker, presenting on 02/10 with right side weakness, dysarthria, facial droop and found to have a acute ischemia of the posterior limb of the left internal capsule. He has been started on treatment with aspirin 81 mg p.o. daily, Plavix 75 mg p.o. daily, atorvastatin 40 mg p.o. daily. Tele neurology was consulted at [facility]. he was out of tPA window at [facility]. Echocardiogram shows normal LVEF of 60%, no regional wall motion abnormalities, grade 1 of 4 diastolic dysfunction.? Noted additionally mild left ventricular hypertrophy and a thickened aortic valve.? Mild to moderate carotid disease approaching 50% stenosis bilaterally on CTA of the neck. 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 He will need outpatient follow-up with cardiology. No events noted on telemetry while patient here in the hospital, will arrange for 3-week terminal worker holter to evaluate for any underlying atrial fibrillation which may have contributed to the stroke. No past history of hypertension, in the hospital maximum systolic blood pressure recorded at 179 mmHg.? Most blood pressure ranges between 1 40-1 60 systolic.? This may be related to permissive hypertension after acutestroke, have not started antihyper hypertensives currently. He is intrcuted to maintain BP diary over the next week and bring to his PCP appointment in one week. Patient received appropriate therapy assessments with PT OT and speech therapy Physical Exam Narrative: General: No acute distress, AO x3 HEENT: PERRLA, pupils bilaterally equal and reactive, pallors not present Chest: Normal vesicular breath sounds, no added sounds, equal good air entry bilaterally CVS: S1-S2 regular, no murmurs, no tachycardia, no gallops, no rubs Abdomen: Soft, nontender, no organomegaly, bowel sounds present Neuro: RUE and RLE 3/5, LLE and LUE 5/5, dysarthria+ Discharge Data Studies Completed and Pending Completed Studies During Hospitalization Category Date Time Status CT head thrombolytic [id number] Stat Cat Scan 02/10/22 08:10 Completed CTA head neck [CT angio headneck* [id number]] Stat Cat Scan 02/10/22 08:17 Completed MR head wo con* [id number] Stat MRI 02/10/22 11:14 Completed CV. echo complete* [id number] Routine Ultrasound 02/10/22 11:18 Completed Pending at discharge Category Date Time Status Erythropoietin Stat Lab 02/10/22 11:50 Received Radiology Impressions Head CT 02/10/22 08:10 IMPRESSION: 1. No acute intracranial hemorrhage. 2. Dense LEFT MCA sign. Suspect MCA thrombus. 3. Severe small vessel ischemic disease throughout the white matter. No large area of infarct. New areas of infarction may be difficult to identified based upon the adjacent confluent chronic white matter disease. Notified Robert Ferreira DO at 02/10/2022 8:21 AM. Head/Neck CTA 02/10/22 08:17 IMPRESSION: 1. No thrombus or occlusion identified within the [place]. There is no thrombus in the LEFT MCA. 2. Mild to moderate atherosclerotic disease in the distal carotid arteries with stenosis approaching 50%, bilateral. 3. No aneurysms. Head MRI 02/10/22 11:14 IMPRESSION: 1. 1.5 x 0.7 cm focus of acute ischemia in the posterior limb LEFT internal capsule. Tiny amount of surrounding edema. No mass effect. 2. Advanced small vessel changes with mild parenchymal volume loss. 3. No hemosiderin on susceptibly weighted images. 4. Mild mucosal thickening in the paranasal sinuses. 5. No other suspicious findings Notified Portillo Garcia MD at 02/10/2022 1:09 PM. Laboratory Results WBC 6.9 10^3/uL (4.0-10.0) 02/11/22 04:10 RBC 5.07 10^6/uL (4.1-5.3) 02/11/22 04:10 Hgb 16.0 g/dL (11.7-16.6) 02/11/22 04:10 Hct 46.7 % (42.0-52.0) 02/11/22 04:10 MCV 92.1 fl (80-94) 02/11/22 04:10 MCH 31.6 pg (28.0-34.0) 02/11/22 04:10 MCHC 34.3 g/dL (30.0-36.0) 02/11/22 04:10 RDW 13.1 % (12.1-15.1) 02/11/22 04:10 Plt Count 200 10^3/cmm (130-400) 02/11/22 04:10 MPV 9.8 fL (7.4-10.4) 02/11/22 04:10 Neut % (Auto) 59.2 % 02/11/22 04:10 Lymph % (Auto) 32.8 % 02/11/22 04:10 [place] % (Auto) 5.1 % 02/11/22 04:10 Eos % (Auto) 2.2 % 02/11/22 04:10 Baso % (Auto) 0.6 % 02/11/22 04:10 Neut # (Auto) 4.07 10^3/uL (1.8-7.7) 02/11/22 04:10 Lymph # (Auto) 2.3 10^3/uL (0.8-4.8) 02/11/22 04:10 [place] # (Auto) 0.4 10^3/uL (0.2-0.9) 02/11/22 04:10 Eos # (Auto) 0.2 10^3/uL (0.0-0.8) 02/11/22 04:10 Baso # (Auto) 0.0 10^3/uL (0.0-0.1) 02/11/22 04:10 Nucleated RBC % (auto) 0 % 02/11/22 04:10 Nucleated RBCs # 0.0 /100WBC 02/11/22 04:10 ESR 24 mm/hr (0-10) H 02/10/22 08:15 PT 13.10 SECONDS (12.1-14.9) 02/10/22 13:47 INR 0.96 (0.8-1.2) 02/10/22 13:47 APTT 30.8 SECONDS (23.9-36.7) 02/10/22 08:15 Sodium 131 mmol/L (136-145) L 02/11/22 04:10 Potassium 3.6 mmol/L (3.5-5.1) 02/11/22 04:10 Chloride 100 mmol/L (98-107) 02/11/22 04:10 Carbon Dioxide 23 mmol/L (22-29) 02/11/22 04:10 Anion Gap 11.6 (5-19) 02/11/22 04:10 BUN 10 mg/dL (8-23) 02/11/22 04:10 Creatinine 0.7 mg/dL (0.7-1.2) 02/11/22 04:10 GFR Calculation 113.5 mL/min (90-130) 02/11/22 04:10 Glucose 92 mg/dL (65-115) 02/11/22 04:10 POC Glucose 118 mg/dL (70-110) H 02/10/22 08:11 Estimat Average Glucose 105 02/10/22 11:50 Hemoglobin A1c 5.3 % (4.0-6.0) 02/10/22 11:50 Calculated Osmolality 271 mOsm/kg (285-295) L 02/11/22 04:10 Calcium 9.1 mg/dL (8.5-10.5) 02/11/22 04:10 Phosphorus 2.5 mg/dL (2.5-4.5) 02/11/22 04:10 Magnesium 1.9 mg/dL (1.7-2.3) 02/11/22 04:10 Total Bilirubin 0.5 mg/dL (0.15-1.2) 02/11/22 04:10 AST 16 U/L (0-40) 02/11/22 04:10 ALT 15 U/L (0-41) 02/11/22 04:10 Alkaline Phosphatase 63 U/L (40-130) 02/11/22 04:10 Total Protein 6.6 g/dL (6.6-8.7) 02/11/22 04:10 Albumin 3.7 g/dL (3.5-5.2) 02/11/22 04:10 Globulin 2.9 g/dL (1.3-4.6) 02/11/22 04:10 Triglycerides 130 mg/dL (0-150) 02/10/22 11:50 Cholesterol 228 mg/dL (0-200) H 02/10/22 11:50 LDL Cholesterol, Calc 149 mg/dL (50-129) H 02/10/22 11:50 HDL Cholesterol 53 mg/dL (60-100) L 02/10/22 11:50 LDL/HDL Ratio 2.81 RATIO (0.00-3.22) 02/10/22 11:50 Cholesterol/HDL Ratio 4.30 mg/dL (1.0-5.00) 02/10/22 11:50 TSH 1.80 uIU/mL (0.27-4.20) 02/10/22 08:15 Urine Color Yellow (Yellow) 02/10/22 17:30 Urine Appearance Clear (CLEAR) 02/10/22 17:30 Urine pH 7 (5-7) 02/10/22 17:30 Ur Specific [place] 1.005 (1.005-1.030) 02/10/22 17:30 Urine Protein Neg (Negative) 02/10/22 17:30 Urine Glucose (UA) Norm (Normal) 02/10/22 17:30 Urine Ketones 1+ (Negative) H 02/10/22 17:30 Urine Blood Neg (Negative) 02/10/22 17:30 Urine Nitrate Negative (Negative) 02/10/22 17:30 Urine Bilirubin Neg (Negative) 02/10/22 17:30 Urine Urobilinogen Norm mg/dL (Negative) 02/10/22 17:30 Ur Leukocyte Esterase Negative (Negative) 02/10/22 17:30 Urine Opiates Screen Negative ng/mL (Negative) 02/10/22 17:52 Ur Barbiturates Screen Negative ng/mL (Negative) 02/10/22 17:52 Ur Phencyclidine Scrn Negative ng/mL (Negative) 02/10/22 17:52 Ur Amphetamines Screen Negative ng/mL (Negative) 02/10/22 17:52 U Benzodiazepines Scrn Negative ng/mL (Negative) 02/10/22 17:52 Urine Cocaine Screen Negative ng/mL (Negative) 02/10/22 17:52 U Marijuana (THC) Screen Negative ng/mL (Negative) 02/10/22 17:52 Vitals Last Vital Signs Temp 98.2 F 02/13/22 11:48 Pulse 62 02/13/22 11:48 Resp 16 02/13/22 11:48 BP 149/90 02/13/22 11:48 Pulse Ox 96 02/13/22 11:48 O2 Del Method 02/13/22 11:48 Discharge Plan Discharge Patient Disposition: Home Condition: Stable Prescriptions: New clopidogrel 75 mg Tablet 75 mg PO DAILY 30 Days Qty: 30 0RF pantoprazole 40 mg Tablet,Delayed Release (Dr/Ec) 40 mg PO DAILY 30 Days Qty: 30 0RF atorvastatin 40 mg Tablet 40 mg PO BEDTIME 30 Days Qty: 30 0RF aspirin 81 mg Tablet,Delayed Release (Dr/Ec) 81 mg PO DAILY 30 Days Qty: 30 0RF Discontinued ibuprofen 800 mg tablet 800 mg PO Q8H PRN (Reason: Pain) Discharge Orders: Discharge Order (Routine); Ordered 02/13/22 Ordered By: Ramona Kapadia Other Ambulatory Orders: MCT/Event Monitor 21 Days (Routine) Timeframe: 21 Days Facility: [facility] OPT-Acute Ordered By: Ramona Kapadia MCT/Event Monitor 30 Days (Routine) Timeframe: [id number] Facility: [facility] - Location: Radiology Ordered By: Ramona Kapadia Referrals: Arpita Suárez MD [Physician] - 03/01/22 10:15 am (acute CVA follow up) Arslan English MD [Physician] - 03/02/22 10:00 am Irais Russo MD [Physician] - 6 Weeks Discharge Diet: Usual diet Discharge Activity: Resume usual activity Patient Instructions: Opioid Safety Activity Restrictions/Additional Instructions: Heart monitor appointment @ 1445 today. Discharge Attestations Time Spent in Discharge Care*: greater than 30 min Quality Metrics Clinical Quality Measures [ Cerebrovascular Accident { Contraindication to Antithrombotic: None; antithrombotic prescribed; Contraindication to Anticoagulation: None; anticoagulation prescribed; Contraindication to Statin: None; Statin prescribed;}] Coding Level of Care Code Acute [facility] note Diagnoses Acute cerebrovascular accident (CVA) I63.9
--- NOTE | 2022-02-13 14:49 | PC.NURSE ---
DISCHARGE INSTRUCTIONS AND STROKE BOOKLET DISCUSSED WITH PATIENT. TAKEN TO HEART CARE SERVICES AFTER DISCHARGE TO HAVE EVENT MONITOR PLACED.
[2022-02-13 14:51] VITALS: BP 149/90; PULSE 62; RESP 16; TEMP 36.8; O2SAT 96
[2022-02-13 14:58] LABS: Erythropoietin 7.2 mIU/mL (2.6-18.5)
== END 2022-02-13 14:52 | disposition home or self-care (01) | DRG 65 ==
LOC: ER 08:46 → ICU 09:16 → MEDSURG 02-11 13:56
PROVIDERS: Family Medicine; Admitting Provider Internal Medicine; Emergency Provider Family Medicine; Visit Provider Student in an Organized Health Care Education/Training Program
DX: I63.89 Other cerebral infarction (principal); G81.91 Hemiplegia, unspecified affecting right dominant side; I67.82 Cerebral ischemia; R13.10 Dysphagia, unspecified; R47.81 Slurred speech; R29.810 Facial weakness; R29.708 NIHSS score 8; F17.210 Nicotine dependence, cigarettes, uncomplicated; I10 Essential (primary) hypertension; I48.91 Unspecified atrial fibrillation; Z75.1 Person awaiting admission to adequate facility elsewhere
CPT/HCPCS: 36415; 36416; 70450; 70496; 70498; 70551; 80053; 80061; 80306; 81003; 82668; 82962; 83036; 83735; 84100; 84443; 85025; 85610; 85651; 85730; 92507; 92523; 92526; 92610; 93005; 93306; 94664; 96372; 96374; 97110; 97116; 97161; 97165; 97535; 99285; C9113; J1650; J7030; Q9967